=== PATIENT | male | born 1995 | race Caucasian/White ===

== ENCOUNTER 2017-12-09 20:10 | Emergency (ER) | payer OTHER ==
[2017-12-09 20:17] VITALS: BP 119/52; PULSE 103; RESP 18; TEMP 98.7
--- NOTE | 2017-12-09 20:38 | ED ---
General Adult HPI - General Chief complaint: Upper Respiratory Infection Stated complaint: URI Time Seen by Provider: 12/09/17 20:23 Source: patient, RN notes reviewed Mode of arrival: ambulatory Limitations: no limitations - History of Present Illness Initial comments: Patient 22-year-old male presented to the emergency room today with chief complaints of upper respiratory infection over the last 3-4 days. He does admit to positive sputum breakfast as been clear in color. He admits to a history of asthma as a child. States he did have a friend's inhaler today which did give him some relief. Patient admits that he missed work today when reason for coming here to the emergency room because he needed a work note. Patient also admits that he noticed a bump in the right groin area. He states has not noticed this in the past. He states it is a little tender locally. Denies any other complaints or symptoms. Patient denies any recent fever, chills , shortness of breath, chest pain, back pain, abdominal pain, nausea or vomiting , numbness or tingling, headaches or visual changes, or any other complaints. - Related Data Previous Rx's Medication Instructions Recorded Albuterol Inhaler [Ventolin Hfa 1 - 2 puff INHALATION Q4-6H PRN #1 12/09/17 Inhaler] inhaler Azithromycin [Zithromax] 250 mg PO DAILY 3 Days #3 tab 12/09/17 predniSONE 50 mg PO DAILY #5 tab 12/09/17 Allergies Allergy/AdvReac Type Severity Reaction Status Date / Time Penicillins Allergy Unknown Verified 12/09/17 20:17 Review of Systems ROS Statement: Those systems with pertinent positive or pertinent negative responses have been documented in the HPI. ROS Other: All systems not noted in ROS Statement are negative. Past Medical History Past Medical History: No Reported History History of Any Multi-Drug Resistant Organisms: None Reported Past Surgical History: No Surgical Hx Reported Past Psychological History: ADD/ADHD Smoking Status: Current every day smoker Past Alcohol Use History: None Reported Past Drug Use History: Marijuana General Exam - General Exam Comments Initial Comments: General: The patient is awake and alert, in no distress, and does not appear acutely ill. Eye: Extra-ocular movements are intact. No nystagmus. There is normal conjunctiva bilaterally. No signs of icterus. Ears, nose, mouth and throat: There are moist mucous membranes and no oral lesions. Neck: The neck is supple, there is no tenderness or JVD. Cardiovascular: There is a regular rate and rhythm. No murmur, rub or gallop is appreciated. Respiratory: Expiratory wheeze bilaterally. respirations are non-labored, breath sounds are equal. No stridor, rales, or rhonchi. Musculoskeletal: Normal ROM, no tenderness. Sensation intact. Strength 5/5. Pulses equal bilaterally 2+. Neurological: A&O x 3. CN II-XII intact, There are no obvious motor or sensory deficits. Coordination appears grossly intact. Speech is normal. Skin: Skin is warm and dry and no rashes or lesions are noted. Psychiatric: Cooperative, appropriate mood & affect, normal judgment. : Patient does have palpable lymph node right groin proximal 1 cm. Limitations: no limitations Course Vital Signs 12/09/17 20:14 Temperature 98.7 F Pulse Rate 103 H Respiratory 18 Rate Blood Pressure 119/52 O2 Sat by Pulse 99 Oximetry Medical Decision Making - Medical Decision Making Options of treatment were discussed with patient about chest x-ray and breathing treatment here in emergency room he has declined. Patient states he does not have time today for this. He states that he isn't hurting. Patient will be given a work note for missing work today. Be given prescriptions for Z- Fam, steroid, albuterol inhaler for his symptoms. He is advised follow family doctor return if symptoms increase worsen. Is advised follow-up family physician over the next 1-2 weeks if lymph node in the right groin is still present. Disposition Clinical Impression: Upper respiratory infection, Lymphadenopathy, inguinal Disposition: HOME SELF-CARE Condition: Good Instructions: Upper Respiratory Infection (ED) Additional Instructions: Please use medication as discussed. Please follow-up with family doctor in the next 2 days of symptoms have not improved. Please follow-up with family physician for swollen lymph node as discussed over the next 1-2 weeks. Please return to emergency room if the symptoms increase or worsen or for any other concerns. Prescriptions: Albuterol Inhaler [Ventolin Hfa Inhaler] 1 - 2 puff INHALATION Q4-6H PRN #1 inhaler PRN Reason: Cough Azithromycin [Zithromax] 250 mg PO DAILY 3 Days #3 tab predniSONE 50 mg PO DAILY #5 tab Is patient prescribed a controlled substance at d/c from ED?: No Referrals: None,Stated [Primary Care Provider] - 1-2 days Alexandria Loyd MD [STAFF PHYSICIAN] - 1-2 days Lc Bee MD [STAFF PHYSICIAN] - 1-2 days Time of Disposition: 20:36
== END 2017-12-09 20:41 | disposition home or self-care (01) ==
LOC: EC 20:10
DX: J06.9 Acute upper respiratory infection, unspecified (principal); R59.0 Localized enlarged lymph nodes; J45.909 Unspecified asthma, uncomplicated; F17.200 Nicotine dependence, unspecified, uncomplicated; Z88.0 Allergy status to penicillin
CPT/HCPCS: 99283